=== PATIENT | female | born 1985 | race American Indian/Alaskan Native ===

== ENCOUNTER → 2018-02-11 | Emergency (ER) | payer OTHER ==
[~2018-02-11] VITALS: Ht 152.4 cm; Wt 74.8 kg
[~2018-02-11] MED LIST: IRON1TAB4 PO; LEVAQUIN750 MG PO; ULTRACET PO
== END | disposition home or self-care (01) ==
LOC: ER 05:18
DX: S62.391A Other fracture of second metacarpal bone, left hand, initial encounter for closed fracture (principal); S20.212A Contusion of left front wall of thorax, initial encounter; S80.02XA Contusion of left knee, initial encounter; V48.6XXA Car passenger injured in noncollision transport accident in traffic accident, initial encounter; Y93.89 Activity, other specified; Y92.488 Other paved roadways as the place of occurrence of the external cause; Y99.8 Other external cause status

== ENCOUNTER 2018-02-27 08:00 | Day surgery (SDC) | payer OTHER | END 2018-02-27 22:15 | disposition home or self-care (01) | LOC: CIR.AMB 08:00 | DX: S62.391A Other fracture of second metacarpal bone, left hand, initial encounter for closed fracture (principal) ==

== ENCOUNTER → 2018-10-19 | Emergency (ER) | payer OTHER ==
[~2018-10-19] VITALS: Ht 152.4 cm; Wt 70.3 kg
[~2018-10-19] MED LIST changes: +KETO10TA2 PO; +ORPHENADRINE C100 MG PO
== END | disposition home or self-care (01) ==
LOC: ER 22:55
DX: M54.5 Low back pain (principal)

== ENCOUNTER 2019-06-09 11:47 | Emergency (ER) | payer OTHER ==
[~2019-06-09] VITALS: Ht 152.4 cm; Wt 68.0 kg
== END 2019-06-09 18:01 | disposition home or self-care (01) ==
LOC: ER 11:47
DX: S93.691A Other sprain of right foot, initial encounter (principal); W21.31XA Struck by shoe cleats, initial encounter; Y93.01 Activity, walking, marching and hiking; Y92.018 Other place in single-family (private) house as the place of occurrence of the external cause; Y99.8 Other external cause status

== ENCOUNTER 2024-09-30 08:05 | Outpatient (CLI) | payer OTHER | END 2024-09-30 08:08 | disposition home or self-care (01) | LOC: TOM 08:05 | PROVIDERS: ATTEND Obstetrics & Gynecology Reproductive Endocrinology | DX: N70.11 Chronic salpingitis (principal) ==